=== PATIENT | male | born 1995 | race Caucasian/White ===

== ENCOUNTER 2021-08-13 16:02 | Outpatient (CLI) | payer BC | END 2021-08-13 16:06 | disposition home or self-care (01) | LOC: RAD 16:02 | PROVIDERS: ATTEND Internal Medicine | DX: M25.562 Pain in left knee (principal); R07.9 Chest pain, unspecified ==

== ENCOUNTER 2021-11-12 13:11 | Emergency (ER) | payer BC ==
[~2021-11-12] VITALS: Ht 175.3 cm; Wt 72.6 kg
== END 2021-11-12 16:16 | disposition home or self-care (01) ==
LOC: ER 13:11
DX: N50.812 Left testicular pain (principal); Z20.822 Contact with and (suspected) exposure to COVID-19

== ENCOUNTER 2021-11-16 12:49 | Emergency (ER) | payer BC ==
[~2021-11-16] VITALS: Ht 177.8 cm; Wt 77.1 kg
== END 2021-11-16 21:02 | disposition home or self-care (01) ==
LOC: ER 12:49
DX: B34.8 Other viral infections of unspecified site (principal); Z20.828 Contact with and (suspected) exposure to other viral communicable diseases